=== PATIENT | male | born 1950 | race Caucasian/White ===

== ENCOUNTER 2016-10-14 13:43 | Inpatient (IN) | payer MEDICARE, OTHER ==
--- NOTE | ~2016-10-14 | PREOPHP ---
PreOp History and Physical [facility] [address] [place]. [address] NAME: AMARI HUMPHREYS JR, MD : 54 STATUS : ADM IN PAT#: [id number] AGE: 66 ADM/REG DATE : 10/14/16 MR#: [id number] REPORT SERV DATE: 10/14/16 DICTATED BY: YUE TAYLOR DATE: 10/14/16 REPORT STATUS : Draft TRANSCRIBED BY: RICARDO DATE: 10/14/16 TIME: 2:45 p.m. REASON FOR ADMISSION: 1. New onset of abdominal ascites, prior episodes of ascites around 01/2016 related to need for further ultrafiltration and fluid removal now with 24-hour new onset of recurrence of ascites and question if it may have been building up for several weeks prior to this. 2. He has associated ischemic cardiomyopathy. Previous ejection fraction noted to be in the 20s with an AICD, question of decline in cardiac function versus development of cardiac cirrhosis versus pericardial effusion. 3. Sbo-jihxbnl-zbbeuzjhd diabetes. 4. Atrial fibrillation with prior history of GI bleed secondary to gastric ulcer while on anticoagulation. Peripheral vascular disease with bilateral below-knee amputations. PLAN: 1. Abdominal paracentesis today, CT scan shows the presence of ascites. He has an old left renal mass cystic lesion that has been biopsied previously. 2. Check echocardiogram. 3. Adjust his dry weight. 4. Sliding scale insulin, and hemodialysis in the morning and resume his home medication list. HISTORY OF PRESENT ILLNESS: History is obtained from the patient. 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 There is no cough. There is no pleuritic chest pain. He says his blood pressure has been trending down with dialysis, but denies any syncope or fever or chills. The abdominal distention not associated with any palpable pain and denies any peritoneal signs. He has an umbilical hernia associated with it that is slightly more prominent. He is very active and has an active physical therapy plan and he states that has not declined as of recently. He denies any chest pain. PAST MEDICAL HISTORY: 1. ESRD, Thursday, Thursday and Thursday at [address]. 2. IDDM. 3. Hypertension. 4. Coronary artery disease. 5. Peripheral vascular disease, bilateral below-knee amputation. 6. History of atrial fibrillation, prior Coumadin use and then associated with a gastric ulcer bleed. ALLERGIES: TETRACYCLINE AND PENICILLIN. SOCIAL HISTORY: Does not smoke cigarettes. No alcohol or medication or street drug usage. PreOp History and Physical [address] 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 FAMILY HISTORY: Negative for stroke or ESRD in his parents. MEDICATIONS: His home medications have been reviewed and as indicated in his medication list. REVIEW OF SYSTEMS: As per the HPI. PHYSICAL EXAMINATION: GENERAL: He is in no acute distress, and he is not obese. VITAL SIGNS: His blood pressure 120s/60s, heart rates in the 80s, afebrile. HEENT: Pupils are equal, reacting to light. He is not pale or jaundiced. Oral mucosa is moist. No pharyngitis. NECK: Supple. No thyromegaly. No carotid bruits heard. Trachea central. Air entry is equal bilaterally. CHEST: Clear to auscultation. [place] beats diffuse displaced S1-S2 no rub. AICD, left upper chest, right IJ Perma-Cath, right upper chest. ABDOMEN: Obviously distended. He has a reducible umbilical hernia. There is ascites. There is some tenderness in his epigastric area, but no guarding or rebound. Bowel sounds are normal. EXTREMITIES: No palpable masses noted. He has bilateral below-knee amputation. He has thigh edema about 1+. No rash reported. Muscle bulk and tone are obviously reduced and he has no carotid bruits. No supraclavicular axillary or inguinal adenopathy. SKIN: No skin rash reported and no skin lesions noted. CT scan of the abdomen and pelvis shows ascites diffuse edema within the subcutaneous intraabdominal fat, cardiomegaly, AICD, calcified atherosclerosis, partially calcified left renal mass, minimally larger compared to 10/25/2012, cholelithiasis and a periumbilical hernia. LABORATORY DATA: Sodium 135, potassium 4.4, chloride 99, CO2 of 31, BUN 35, creatinine 4.13, hemoglobin is 11.3, hematocrit 33.4, white count 6.1, platelet count is 297,000. He has had thrombocytopenia in the past. MG/MODL Yue Taylor M.D. / [id number] CC: Yue Taylor M.D.
[2016-10-14 12:46] LABS: BASOPHILS 0.3 %; BASOPHILS ABSOLUTE 0.02 10/3/uL (0.0-0.16); EOSINOPHILS 3.8 %; EOSINOPHILS ABSOLUTE 0.23 10/3/uL (0.0-0.53); HEMOGLOBIN 11.3 g/dL (13.6-17.8); IMMATURE GRANULOCYTES 0.2 %; IMMATURE GRANULOCYTES ABSOLUTE 0.01 10/3/uL (0.0-0.11); LYMPHOCYTES 17.2 %; LYMPHOCYTES ABSOLUTE 1.04 10/3/uL (0.67-4.30); MEAN CORPUS HGB CONC 33.8 g/dL (32.0-36.0); MEAN CORPUSCULAR HEMOGLOB 34.9 pg (26.0-34.0); MEAN PLATELET VOLUME 11.4 fL (9.2-13.0); MONOCYTES 7.9 %; MONOCYTES ABSOLUTE 0.48 10/3/uL (0.21-1.20); NEUTROPHILS 70.6 %; NEUTROPHILS ABSOLUTE 4.28 10/3/uL (2.02-8.40); RBC DISTRIBUTION WIDTH 16.1 % (12.0-16.0); RED CELL COUNT 3.24 10/6/uL (4.7-6.1); WHITE BLOOD CELLS 6.1 10/3/uL (4.5-10.5)
[2016-10-14 12:47] LABS: HEMATOCRIT 33.4 % (40.0-51.0); MANUAL DIFF NO %; MEAN CORPUSCULAR VOLUME 103.1 fL (80-100); PLATELET COUNT 97 10/3/uL (150-400)
[2016-10-14 13:04] LABS: A/G RATIO 0.7 (0.7-1.9); ALBUMIN 3.1 G/DL (3.5-5.0); ALKALINE PHOSPHATASE 199 U/L (45-117); BUN (BLOOD UREA NITROGEN) 35 MG/DL (6-23); CALCIUM, SERUM 9.1 MG/DL (8.5-10.4); CHLORIDE, SERUM 99 MMOL/L (96-112); CO2 (CARBON DIOXIDE) 31 MMOL/L (24-34); CREATININE 4.13 MG/DL (0.70-1.30); GFR AFRICAN AMERICAN 17 ML/MIN (>=60); GFR NON AFRICAN AMERICAN 14 ML/MIN (>=60); GLOBULIN 4.2 G/DL (2.5-4.1); GLUCOSE, SERUM 177 MG/DL (60-99); POTASSIUM, SERUM 4.4 MMOL/L (3.5-5.3); SGOT(AST) 13 U/L (5-40); SGPT(ALT) 14 U/L (5-65); SODIUM, SERUM 135 MMOL/L (135-148); TOTAL BILIRUBIN 0.7 MG/DL (0-1.2); TOTAL PROTEIN 7.3 G/DL (6.0-8.5)
[~2016-10-14 13:43] MED LIST: ALLEGRA180 PO; ARANESP100 SC; ARANESP200 IV; ASAB PO; BETAPACE80 PO; CALTRAT600 PO; CENTRUM PO; CENTRUM TAB1 TAB PO; COQ-10200 MG PO; CORDARONE PO; COREG12 PO; COREG25 PO; COZ25 PO; CYANO1000T PO; ELIQUIS 5 MG TAB5 MG PO; ENDOCET1 TAB PO; FERGON240 MG PO; FESO4 PO; FISH-EPA1000 MG PO; FLEX PO; FOLATE PO; FOLIC ACID400 MC1 PO; FOLIC PO; FOSRENOL1000 MG PO; HALF81 PO; INSPRA25 PO; INSTRINSI OR; KRILL OIL PO; LIDODERM TOP; LUTEIN20 MG PO; MAG OXIDE250 MG PO; MAGNEBIND PO; MAGNEBIND300 MG PO; MAGOX4 PO; METAMUCIL CAN7 OZ PO; MIRALAXPKT PO; MULTIPLE VIT PO; MULTIVIT/MIN PO; NIACIN 500 PO; NIACOR500 MG PO; NOVOLOG SC; OMEGA 3550 MG PO; OXYCOD PO; PACERONE100 MG PO; PCET PO; PHOSLO PO; PHOSPHATIDYL SERINE PO; PLAVIX PO; PROTONIX PO; RENVELA800 MG PO; SB325 PO; SELENIUM200 MC1 PO; SODIUM BICARBONATE PO; VALTREX1 GM PO; VASOTEC20 MG PO; VASOTEC5 PO; VIT B3 PO; VITAMIN A PO; VITAMIN A8000 UNIT PO; VITAMIN B-12 PO; VITAMIN B-121000 MC1 PO; VITAMIN B-121000 MC1 SL; VITAMIN C100 M2 PO; VITAMIN D1000 UNI1 PO; VITAMIN D31000 UNIT PO; VITAMIN D34000 UNIT PO; VITAMIN E400 UNI5 PO; VITC500 PO; VITE PO; Z100 PO; Z300 PO; ZANTAC150 MG PO; ZOCOR20 PO; ZOCOR40 PO; [UNRECOGNIZED DRUG - CODE] OR
[2016-10-14] MEDS ORDERED: COREG12 PO (14:41)
[2016-10-14] MEDS ORDERED: INSPRA25 PO (14:43)
[2016-10-14] MEDS ORDERED: ZOCOR20 PO (14:43)
[2016-10-14] MEDS ORDERED: Z300 PO (14:45)
[2016-10-14] MEDS ORDERED: VITAMIN A8000 UNIT PO (14:45)
[2016-10-14] MEDS ORDERED: NIACIN 500 PO ×2 (14:46→14:47)
[2016-10-14] MEDS ORDERED: VITAMIN D31000 UNIT PO (14:48)
[2016-10-14] MEDS ORDERED: VITE PO (14:49)
[2016-10-14] MEDS ORDERED: CYANO1000T PO (14:50)
[2016-10-14] MEDS ORDERED: FOLIC ACID800 MCG PO (14:51)
[2016-10-14] MEDS ORDERED: VITC500 PO (14:54)
[2016-10-14] MEDS ORDERED: MAGNEBIND PO (14:55)
[2016-10-14] MEDS ORDERED: RENVELA800 MG PO (14:55)
[2016-10-14] MEDS ORDERED: CO Q-10200 MG PO (14:56)
[2016-10-14] MEDS ORDERED: PHOSPHATIDYL SERINE PO (14:57)
[2016-10-14] MEDS ORDERED: OXYCOD PO (15:01)
[2016-10-14] MEDS ORDERED: COZ25 PO (15:01)
[2016-10-14] MEDS ORDERED: FLEX PO (15:02)
[2016-10-14] MEDS ORDERED: ELIQUIS 5 MG TAB5 MG PO (15:03)
[2016-10-14] MEDS ORDERED: PROTONIX PO (15:03)
[2016-10-14] MEDS ORDERED: ZANTAC150 MG PO (15:04)
[2016-10-14 15:07] LABS: TROPONIN I 0.03 NG/ML (<0.05)
[2016-10-14 15:10] LABS: INTERNATIONAL NORMAL RATI 2.3 UNITS (-)
[2016-10-14 15:12] LABS: PROTIME (NOT ORD) 24.7 SEC (12.0-14.5)
[2016-10-14 15:44] LABS: LACTATE 0.8 MMOL/L (0.3-2.4)
[2016-10-15 06:04] LABS: BASOPHILS 0.4 %; BASOPHILS ABSOLUTE 0.02 10/3/uL (0.0-0.16); EOSINOPHILS 5.2 %; EOSINOPHILS ABSOLUTE 0.27 10/3/uL (0.0-0.53); HEMATOCRIT 33.5 % (40.0-51.0); HEMOGLOBIN 11.3 g/dL (13.6-17.8); IMMATURE GRANULOCYTES 0.2 %; IMMATURE GRANULOCYTES ABSOLUTE 0.01 10/3/uL (0.0-0.11); LYMPHOCYTES 24.6 %; LYMPHOCYTES ABSOLUTE 1.29 10/3/uL (0.67-4.30); MEAN CORPUS HGB CONC 33.7 g/dL (32.0-36.0); MEAN CORPUSCULAR HEMOGLOB 34.7 pg (26.0-34.0); MEAN CORPUSCULAR VOLUME 102.8 fL (80-100); MEAN PLATELET VOLUME 12.6 fL (9.2-13.0); MONOCYTES 9.5 %; NEUTROPHILS 60.1 %; NEUTROPHILS ABSOLUTE 3.15 10/3/uL (2.02-8.40); PLATELET COUNT 105 10/3/uL (150-400); RBC DISTRIBUTION WIDTH 16.1 % (12.0-16.0); RED CELL COUNT 3.26 10/6/uL (4.7-6.1); WHITE BLOOD CELLS 5.2 10/3/uL (4.5-10.5)
[2016-10-15 06:05] LABS: MANUAL DIFF NO %
[2016-10-15 06:06] LABS: PROTIME (NOT ORD) 22.7 SEC (12.0-14.5)
[2016-10-15 06:16] LABS: ALBUMIN 2.8 G/DL (3.5-5.0); CALCIUM, SERUM 9.3 MG/DL (8.5-10.4); CHLORIDE, SERUM 99 MMOL/L (96-112); CO2 (CARBON DIOXIDE) 30 MMOL/L (24-34); DIRECT BILIRUBIN 0.3 MG/DL (0.0-0.4); INDIRECT BILIRUBIN(NOT ORDER) 0.6 MG/DL (0.1-0.9); SGOT(AST) 13 U/L (5-40); SGPT(ALT) 12 U/L (5-65); SODIUM, SERUM 134 MMOL/L (135-148); TOTAL BILIRUBIN 0.9 MG/DL (0-1.2); TOTAL PROTEIN 6.7 G/DL (6.0-8.5)
[2016-10-15 06:17] LABS: ALKALINE PHOSPHATASE 165 U/L (45-117); BUN (BLOOD UREA NITROGEN) 43 MG/DL (6-23); CREATININE 4.87 MG/DL (0.70-1.30); GFR AFRICAN AMERICAN 14 ML/MIN (>=60); GFR NON AFRICAN AMERICAN 12 ML/MIN (>=60); GLUCOSE, SERUM 110 MG/DL (60-99); PHOSPHORUS, SERUM 3.6 MG/DL (2.5-4.5)
[2016-10-15 13:33] LABS: LDH BODY FLUID (NOT ORD) 86 U/L
[2016-10-15 15:21] LABS: BD FL SOURCE (NOT ORD) PARACENTESIS
[2016-10-16 05:21] LABS: BASOPHILS 0.2 %; BASOPHILS ABSOLUTE 0.01 10/3/uL (0.0-0.16); EOSINOPHILS ABSOLUTE 0.18 10/3/uL (0.0-0.53); HEMATOCRIT 31.9 % (40.0-51.0); HEMOGLOBIN 10.6 g/dL (13.6-17.8); IMMATURE GRANULOCYTES 0.2 %; IMMATURE GRANULOCYTES ABSOLUTE 0.01 10/3/uL (0.0-0.11); LYMPHOCYTES 25.2 %; LYMPHOCYTES ABSOLUTE 1.14 10/3/uL (0.67-4.30); MEAN CORPUS HGB CONC 33.2 g/dL (32.0-36.0); MEAN CORPUSCULAR HEMOGLOB 34.4 pg (26.0-34.0); MEAN CORPUSCULAR VOLUME 103.6 fL (80-100); MEAN PLATELET VOLUME 11.5 fL (9.2-13.0); MONOCYTES 9.3 %; MONOCYTES ABSOLUTE 0.42 10/3/uL (0.21-1.20); NEUTROPHILS 61.1 %; NEUTROPHILS ABSOLUTE 2.77 10/3/uL (2.02-8.40); PLATELET COUNT 104 10/3/uL (150-400); RBC DISTRIBUTION WIDTH 16.3 % (12.0-16.0); RED CELL COUNT 3.08 10/6/uL (4.7-6.1); WHITE BLOOD CELLS 4.5 10/3/uL (4.5-10.5)
[2016-10-16 05:22] LABS: MANUAL DIFF NO %
[2016-10-16 05:25] LABS: INTERNATIONAL NORMAL RATI 1.8 UNITS (-); PROTIME (NOT ORD) 20.8 SEC (12.0-14.5)
[2016-10-16 05:38] LABS: CALCIUM, SERUM 8.9 MG/DL (8.5-10.4); CHLORIDE, SERUM 105 MMOL/L (96-112); CO2 (CARBON DIOXIDE) 29 MMOL/L (24-34); GFR AFRICAN AMERICAN 19 ML/MIN (>=60); GFR NON AFRICAN AMERICAN 16 ML/MIN (>=60); GLUCOSE, SERUM 129 MG/DL (60-99); PHOSPHORUS, SERUM 2.8 MG/DL (2.5-4.5); POTASSIUM, SERUM 4.7 MMOL/L (3.5-5.3); SODIUM, SERUM 140 MMOL/L (135-148)
[2016-10-16 05:39] LABS: BUN (BLOOD UREA NITROGEN) 31 MG/DL (6-23); CREATININE 3.72 MG/DL (0.70-1.30)
== END 2016-10-16 12:02 | disposition home or self-care (01) | DRG 947 ==
LOC: ER 13:43 → 2SO 15:19
PROVIDERS: Emergency Medicine; Internal Medicine Nephrology; Registered Nurse
PROC: 0W9G3ZZ Drainage of Peritoneal Cavity, Percutaneous Approach (ICD-10-PCS; principal; 2016-10-15)
DX: R18.8 Other ascites (principal); N18.6 End stage renal disease; E11.22 Type 2 diabetes mellitus with diabetic chronic kidney disease; I12.0 Hypertensive chronic kidney disease with stage 5 chronic kidney disease or end stage renal disease; I48.91 Unspecified atrial fibrillation; E11.51 Type 2 diabetes mellitus with diabetic peripheral angiopathy without gangrene; I25.5 Ischemic cardiomyopathy; K42.9 Umbilical hernia without obstruction or gangrene; I25.10 Atherosclerotic heart disease of native coronary artery without angina pectoris; Z99.2 Dependence on renal dialysis; Z95.810 Presence of automatic (implantable) cardiac defibrillator; Z89.512 Acquired absence of left leg below knee; Z89.511 Acquired absence of right leg below knee; Z87.11 Personal history of peptic ulcer disease; Z88.0 Allergy status to penicillin; Z88.1 Allergy status to other antibiotic agents
CPT/HCPCS: 49083; 74176; 80053; 80069; 80076; 82042; 83605; 83615; 83690; 83735; 83880; 84157; 84484; 85025; 85610; 85730; 87015; 87070; 87102; 87116; 87205; 88112; 88305; 89051; 93005; 96374; 99285; A9270-GY; C8929; G0257; J1170; J2405; P9047; Q9957